=== PATIENT | male | born 1965 ===

== ENCOUNTER 2017-10-08 10:30 | Emergency (ER) | payer OTHER ==
[2017-10-08 10:46] VITALS: BP 125/76; PULSE 47; RESP 20; TEMP 98.1; O2SAT 100
--- NOTE | 2017-10-08 11:24 | RAD ---
PROCEDURE: Right Ankle Radiographs. HISTORY: pain for 5 days COMPARISON: None FINDINGS: BONES: Normal. No fracture. JOINTS: Normal. No osteoarthritis. Ankle mortise maintained. Talar dome intact SOFT TISSUES: Normal. OTHER FINDINGS: None. IMPRESSION: Normal right ankle radiographs.
--- NOTE | 2017-10-08 11:29 | C.PDOC ---
History Of Present Illness 52 year old male complains of pain and swelling to right ankle for 5 days. He is unsure of injury stated it happened over the weekend he was out drinking and could have twisted the ankle. He applied ice without full relief. Denies any foot, knee or calf pain or other injury Time Seen by Provider: 10/08/17 11:03 Chief Complaint (Nursing): Lower Extremity Problem/Injury History Per: Patient History/Exam Limitations: no limitations Onset/Duration Of Symptoms: Days (5) Current Symptoms Are (Timing): Still Present Severity: Mild - Ankle/Foot Description Of Injury: Twisted Past Medical History Reviewed: Historical Data, Nursing Documentation, Vital Signs Vital Signs: Last Vital Signs Temp 98.1 F 10/08/17 10:44 Pulse 47 L 10/08/17 10:44 Resp 20 10/08/17 10:44 BP 125/76 10/08/17 10:44 Pulse Ox 100 10/08/17 11:30 - Medical History PMH: No Chronic Diseases Surgical History: No Surg Hx Family History: States: Unknown Family Hx - Social History Hx Tobacco Use: No Hx Alcohol Use: No Hx Substance Use: No - Immunization History Hx Tetanus Toxoid Vaccination: Yes Hx Influenza Vaccination: No Hx Pneumococcal Vaccination: No Review Of Systems Except As Marked, All Systems Reviewed And Found Negative. Musculoskeletal: Positive for: Other (ankle pain) Physical Exam - Physical Exam Appears: Non-toxic, No Acute Distress Skin: Warm, Dry, No Ecchymosis Head: Atraumatic, Normacephalic Eye(s): bilateral: Normal Inspection, EOMI Neck: Normal ROM Chest: Symmetrical Extremity: Normal ROM, No Calf Tenderness, Deformity (Right 4th hammer toe), Other (right ankle with mild swelling and tenderness to lateral ankle, normal ROM. normal DP pulse. ) Pulses: Right Dorsalis Pedis: Normal Neurological/Psych: Oriented x3, Normal Speech Gait: Steady ED Course And Treatment O2 Sat by Pulse Oximetry: 100 Medical Decision Making Medical Decision Making: Impression: Right ankle pain Plan: xray Re-eval: Xrays shows no fracture or dislocation. Normal radiograph. Patient given copy of xray report. Recommend Motrin for pain and swelling. May follow up in the clinic with podiatry if pain persists Disposition Counseled Patient/Family Regarding: Diagnosis, Need For Followup, Rx Given - Disposition Referrals: [facility] [Outside] Disposition: HOME/ ROUTINE Disposition Time: 11:26 Condition: GOOD Additional Instructions: Tu radio era normal Walters motrin para el dolor o la hinchazn Hacer un seguimiento con la clnica de podologa si el dolor persiste Prescriptions: Ibuprofen [Motrin] 600 mg PO Q8 #30 tab Instructions: Ankle Sprain (ED) Forms: [employer] (Estonian) - POA Present On Arrival: None - Clinical Impression Clinical Impression: Ankle sprain
== END 2017-10-08 11:43 | disposition home or self-care (01) ==
LOC: C.ER 10:30
DX: S93.401A Sprain of unspecified ligament of right ankle, initial encounter (principal); X58.XXXA Exposure to other specified factors, initial encounter